=== PATIENT | male | born 1955 | race Caucasian/White ===

== ENCOUNTER 2016-08-07 18:06 | Emergency (ER) | payer OTHER ==
[2016-08-07 18:30] VITALS: BMI 39.1
[2016-08-07 18:42] LABS: AUTOMATED BASOPHIL 0.4 % (0-2); AUTOMATED EOSINOPHIL 1.2 % (0-5); AUTOMATED LYMPH 12.4 % (17-44); MPV 6.8 fL (7.4-10.4)
[2016-08-07 18:53] LABS: BLOOD UREA NITROGEN 25 MG/DL (9-20); CALCIUM 9.8 MG/DL (8.4-10.2); CALCULATED OSMOLALITY 281 MOs/Kg (270-290); CHLORIDE 106 mEq/L (98-107); GLUCOSE 163 MG/DL (70-99); SODIUM LEVEL 142 mEq/L (137-146); TOTAL PROTEIN 8.1 G/DL (6.3-8.2)
[2016-08-07 19:02] LABS: LEUKOCYTES/URINE NEG (NEGATIVE); NITRITE/URINE NEG (NEGATIVE); RBC/URINE 0-2 (0-2); URINE OCCULT BLOOD NEG (NEG/TRACE); WBC/URINE 0-2 (0-2)
[2016-08-07] MEDS ORDERED: MORPHINE 4 MG/ML INJECTION IV ONE ×3 (19:10→21:40)
[2016-08-07] MEDS ORDERED: SODIUM CHLORIDE 0.9% 10 ML FLUSH FLUSH PRN (19:10)
[2016-08-07] MEDS ORDERED: ONDANSETRON HCL 4 MG/2 ML VIAL IV ONE (19:10)
[2016-08-07] MEDS ORDERED: NS 1,000 ML IV ONE (19:17)
--- NOTE | 2016-08-07 19:19 | DIRPT ---
CLINICAL DATA: Abdominal pain and swelling EXAM: DG ABDOMEN ACUTE W/ 1V CHEST COMPARISON: 05/23/2016 FINDINGS: Cardiac shadow is within normal limits. The lungs are clear bilaterally. No bony abnormality is seen. A gastric lap band is noted in satisfactory position stable from the prior exam. Multiple dilated loops of small bowel with air-fluid levels are noted. No free air is seen. Postsurgical changes are noted in the low abdomen consistent with prior mesh repair. Fecal material is noted within the colon. IMPRESSION: Small bowel dilatation consistent with at least partial small bowel obstruction. Decompression is recommended. Further evaluation by means of CT may be helpful. Electronically Signed By: Gianni Castro M.D. On: 08/07/2016 19:16
--- NOTE | 2016-08-07 19:19 | EDPRACDOC ---
- General Information Information Source: Patient Mode Of Arrival: Car - History of Present Illness Onset: today Pain Location: Reports: Diffuse Pain Context: Reports: Spontaneous Pain Severity: Moderate Pain Quality: Reports: Aching, Sharp Pain Radiation: Reports: No Radiation Adult Abdominal History: Reports: Abdominal Surgery, Bowel Obstruction Modifying Factors: improves with: Nothing Associated Signs & Symptoms: Reports: Nausea, Vomiting Oral Intake: Decreased Urinary Output: Normal <Zoe Strickland - Last Filed: 08/07/16 20:27> <Toshia Grace - Last Filed: 08/07/16 22:10> <Simeon Nieves - Last Filed: 08/08/16 11:01> - General Information Chief Complaint: Abdominal Pain Stated Complaint: ABDOMIAL PAIN Time Seen by Provider: 08/07/16 19:09 Allergies/Adverse Reactions: Allergies Allergy/AdvReac Type Severity Reaction Status Date / Time No Known Allergies Allergy Verified 08/07/16 18:27 - History of Present Illness HPI: Pt c/o diffuse abd pain with n/v x 1 day. Pt states feels like previous bowel obstruction. Denies fever, cp, sob, changes in bowel or bladder, rash. Pt states 3-4 episodes of vomiting since 3 pm. All previous bowel obstruction surgeries have been at [facility]. (Zoe Strickland) ED Past Medical History - History Reviewed Yes Nurses notes reviewed and agree except as marked - Patient Medical History Cardiac History: Reports: Hypertension, Heart Attack, Hypercholesterolemia Systemic History: Reports: Diabetes Surgical History: Reports: Appendectomy, Cholecystectomy - Social Medical History Smoking Status: Current status unknown ETOH: None Substance Abuse: None <Zoe Strickland - Last Filed: 08/07/16 20:27> EDM Review of Systems - Review of Systems Constitutional: No Symptoms Reported. negative: Fever, Chills, Weakness, Fatigue, Loss of Appetite Ears: No Symptoms Reported. negative: Pain, Hearing Loss, Drainage, Ear Pulling Throat: No Symptoms Reported. negative: Pain, Swelling Nose: No Symptoms Reported. negative: Congestion, Bleeding, Discharge, Injection, Swelling, Deformity, Ecchymosis, Tender, Abrasion, Laceration Mouth: No Symptoms Reported. negative: Pain, Drooling Respiratory: No Symptoms Reported. negative: Cough, Brassy Cough, Barky Cough, Shortness of Breath, Wheezing, Hemoptysis Cardiovascular: No Symptoms Reported. negative: Chest Pain, Palpitations, Syncope, Edema, Orthopnea, PND, Skin Mottling, Cyanosis Gastrointestinal: Nausea, Pain, Vomiting Genitourinary: No Symptoms Reported. negative: Dysuria, Hematuria, Frequency, Discharge, Bleeding, Testicular Pain, Neurological: No Symptoms Reported. negative: Headache, Dizziness, Seizure, Numbness, Weakness, Speech Difficulty, Gait Difficulty Musculoskeletal: No Symptoms Reported. negative: Neck, Chestwall, Ribs, Back, Shoulder, Arm, Elbow, Forearm, Wrist, Hand, Pelvis, Hip, Femur, Knee, Leg, Ankle , Foot Integumentary: No Symptoms Reported. negative: Itching, Rash, Bruising, Wound Allergic/Immunologic: No Symptoms Reported. negative: Hives, Itching Hematologic: No Symptoms Reported. negative: Lymphadenopathy, Easy Bruising, Easy Bleeding Psychiatric: No Symptoms Reported. negative: Anxiety, Depression, Hallucinations, Insomnia, Suicidal <Zoe Strickland - Last Filed: 08/07/16 20:27> - Physical Exam Constitutional: Alert Oriented to: Time, Person, Place - HEENT Head: Normal ( normocephalic) Eye Exam: Normal (PERRL, EOMI, Sclera white) Oropharynx: Normal (Pharynx:Moist without exudate,Gums-no swelling) Tympanic Membrane: Normal ENT EAC: Normal Nose: No Symptoms Reported (septum midline) Neck: Normal (FROM, trachea at midline) - Respiratory/Cardiovascular Respiratory: Normal - CTA (BBS clear to auscultation without adventitious sounds ) Cardiovascular: Normal (RRR without murmur, gallop or rub) - GI Auscultation: Normal (NABS) Palpation: Normal (Soft,No rebound or guarding, non distended) Tenderness: Diffuse, Mild - Musculoskeletal Back: Normal (Non-Tender) Extremities: Normal (Normal tone, Pulses 2+ No cyanosis or edema, FROM) - Integumentary Skin: Normal, Warm, Dry Lymphatics: Normal (no adenopathy) - Neurologic Memory Impaired: Normal Motor Function: Normal (Normal tone, Pulses 2+ No cyanosis or edema, FROM) Mood Description: Normal Perception: Normal <Zoe Strickland - Last Filed: 08/07/16 20:27> - Differential Diagnosis Bowel Obstruction, Diverticulitis, Gastroenteritis - Results 08/07/16 18:34 08/07/16 18:34 - Diagnostic Imaging Abdomen Image interpreted by: Radiologist <Zoe Strickland - Last Filed: 08/07/16 20:27> - Re-evaluation Re-evaluation 3 Re-evaluation Time: 21:34 (ABDOMINAL PAIN AND NAUSEA RETURNING, PATIENT REQUESTS TRANSFER TO [facility] FOR CONTINUITY CARE WITH [facility].) - Results 08/07/16 18:34 08/07/16 18:34 <Toshia Grace - Last Filed: 08/07/16 22:10> - Re-evaluation Re-evaluation 4 Re-evaluation Time: 09:31 Re-evaluation 5 Re-evaluation Time: 11:00 - Results 08/07/16 18:34 08/07/16 18:34 <Simeon Nieves - Last Filed: 08/08/16 11:01> - Re-evaluation Re-evaluation 3 ABDOMEN DISTENDED TYMPANITIC DIFFUSELY TENDER PALPATION BUT NO PERITONEAL SIGNS. PATIENT DEFERRED NG TUBE. STATES THEY USUALLY MANAGE IT WITHOUT IT. NG TUBE EXPLANATION PROVIDED PATIENT HAS MADE AN INFORMED DECISION. (Toshia Grace) Re-evaluation 4 PT REQUESTED TO SPEAK WITH ME. PASSING FLATUS. NO ABDOMINAL PAIN. REQUESTING WATER. I FEEL WE CAN TRY. STILL WAITING FOR TRANSPORT. OBSTRUCTION MAY BE RESOLVING. (Simeon Nieves) Re-evaluation 5 PT TOLERATED PO WATER. NO PAIN , NO NAUSEA. PT WOULD LIKE TO GO HOME SYMPTOMS RESOLVED. WILL DO LIQUIDS AND EASE INTO SOLIDS. (Simeon Nieves) - Results WBC 11.8 xk/uL (3.8-10.8) H 08/07/16 18:34 RBC 4.26 xM/uL (4.70-6.10) L 08/07/16 18:34 Hgb 14.8 g/dL (14.0-18.0) 08/07/16 18:34 Hct 44.7 % (42-52) 08/07/16 18:34 MCV 105 fL (80-94) H 08/07/16 18:34 MCH 34.8 pg (27-32) H 08/07/16 18:34 MCHC 33.2 g/dl (33-36) 08/07/16 18:34 RDW 16.3 % (11.5-14.5) H 08/07/16 18:34 Plt Count 280 xk/uL (130-400) 08/07/16 18:34 MPV 6.8 fL (7.4-10.4) L 08/07/16 18:34 Neut % (Auto) 81.0 % (45-76) H 08/07/16 18:34 Lymph % (Auto) 12.4 % (17-44) L 08/07/16 18:34 [place] % (Auto) 5.0 % (3-10) 08/07/16 18:34 Eos % (Auto) 1.2 % (0-5) 08/07/16 18:34 Baso % (Auto) 0.4 % (0-2) 08/07/16 18:34 Absolute Neuts (auto) 9.56 xk/uL (1.7-8.2) H 08/07/16 18:34 Absolute Lymphs (auto) 1.42 xk/uL (0.65-4.75) 08/07/16 18:34 Sodium 142 mEq/L (137-146) 08/07/16 18:34 Potassium 4.9 mEq/L (3.5-5.1) 08/07/16 18:34 Chloride 106 mEq/L (98-107) 08/07/16 18:34 Carbon Dioxide 22 mMOL/L (22-33) 08/07/16 18:34 Anion Gap 19 mEq/L (8-16) H 08/07/16 18:34 BUN 25 MG/DL (9-20) H 08/07/16 18:34 Creatinine 1.00 MG/DL (0.66-1.25) 08/07/16 18:34 Estimated GFR (MDRD) > 60 mL/min (>=60) 08/07/16 18:34 Glucose 163 MG/DL (70-99) H 08/07/16 18:34 Calculated Osmolality 281 MOs/Kg (270-290) 08/07/16 18:34 Calcium 9.8 MG/DL (8.4-10.2) 08/07/16 18:34 Total Bilirubin 1.1 MG/DL (0.2-1.3) 08/07/16 18:34 AST 21 IU/L (17-59) 08/07/16 18:34 ALT 28 IU/L (21-72) 08/07/16 18:34 Alkaline Phosphatase 140 IU/L (50-160) 08/07/16 18:34 Total Protein 8.1 G/DL (6.3-8.2) 08/07/16 18:34 Albumin 4.4 G/DL (3.5-5.0) 08/07/16 18:34 Urine Color Yellow 08/07/16 18:37 Urine Clarity Clear 08/07/16 18:37 Urine pH 6.0 (5.0-8.0) 08/07/16 18:37 Ur Specific [place] 1.025 (1.003-1.035) 08/07/16 18:37 Urine Protein 1+ (NEG/TRACE) H 08/07/16 18:37 Urine Glucose (UA) 2+ (NEGATIVE) 08/07/16 18:37 Urine Ketones Neg (NEGATIVE) 08/07/16 18:37 Urine Occult Blood Neg (NEG/TRACE) 08/07/16 18:37 Urine Nitrite Neg (NEGATIVE) 08/07/16 18:37 Urine Bilirubin Neg (NEGATIVE) 08/07/16 18:37 Urine Urobilinogen <2.0 MG/DL (0-1) 08/07/16 18:37 Ur Leukocyte Esterase Neg (NEGATIVE) 08/07/16 18:37 Urine RBC 0-2 (0-2) 08/07/16 18:37 Urine WBC 0-2 (0-2) 08/07/16 18:37 Urine Bacteria Few (NEG/FEW) 08/07/16 18:37 Urine Mucus Occ (NEG/OCC) 08/07/16 18:37 Lab Results 08/07/16 08/07/16 08/07/16 18:37 18:34 18:34 WBC 11.8 H RBC 4.26 L Hgb 14.8 Hct 44.7 MCV 105 H MCH 34.8 H MCHC 33.2 RDW 16.3 H Plt Count 280 MPV 6.8 L Neut % (Auto) 81.0 H Lymph % (Auto) 12.4 L [place] % (Auto) 5.0 Eos % (Auto) 1.2 Baso % (Auto) 0.4 Absolute Neuts (auto) 9.56 H Absolute Lymphs (auto) 1.42 Sodium 142 Potassium 4.9 Chloride 106 Carbon Dioxide 22 Anion Gap 19 H BUN 25 H Creatinine 1.00 Estimated GFR (MDRD) > 60 Glucose 163 H Calculated Osmolality 281 Calcium 9.8 Total Bilirubin 1.1 AST 21 ALT 28 Alkaline Phosphatase 140 Total Protein 8.1 Albumin 4.4 Urine Color Yellow Urine Clarity Clear Urine pH 6.0 Ur Specific [place] 1.025 Urine Protein 1+ H Urine Glucose (UA) 2+ Urine Ketones Neg Urine Occult Blood Neg Urine Nitrite Neg Urine Bilirubin Neg Urine Urobilinogen <2.0 Ur Leukocyte Esterase Neg Urine RBC 0-2 Urine WBC 0-2 Urine Bacteria Few Urine Mucus Occ (Zoe Strickland) (Toshia Grace) (Simeon Nieves) - Diagnostic Imaging Abdomen 08/07/16 19:20 IMPRESSION: Small bowel dilatation consistent with at least partial small bowel obstruction. Decompression is recommended. Further evaluation by means of CT may be helpful. 08/07/16 20:27 Ct: IMPRESSION: 1. Findings are consistent with a partial small bowel obstruction, with the appearance similar to the prior CT. Small bowel is dilated proximal to the right lower quadrant small bowel anastomosis and normal in caliber to decompressed distal to the anastomosis. There is no bowel wall thickening or inflammatory changes. 2. No other acute findings. (Zoe Strickland) - Departure Education/Counseling Given To: Patient Education/Counseling Given Regarding: Diagnosis, Treatment <Zoe Strickland - Last Filed: 08/07/16 20:27> - Departure Disposition: Trans. to Other Hospital ([facility]) Decision to Transfer Time: 22:22 - Physician Consulted Surgery Time Called: 21:30 ([facility]) Provider Called: SURINDER Time Electrical Manager Returned Call: 21:33 (WILL SEE IN CONSULTATION, CALL HOSPITALIST FOR DIRECT ADMIT) Hospitalist Time Called: 21:33 Provider Called: ZAYDA Time Electrical Manager Returned Call: 22:22 <Toshia Grace - Last Filed: 08/07/16 22:10> Decision Time to Discharge: 11:01 - Departure Yes I personally saw and evaluated the patient. Disposition: Home Education/Counseling Given To: Patient Education/Counseling Given Regarding: Diagnosis <Simeon Nieves - Last Filed: 08/08/16 11:01> - Departure Condition: Stable Final Diagnosis: Small bowel obstruction, partial Instructions: Bowel Obstruction (ED) Referrals: None,No Provider [Primary Care Provider] - One Week Additional Instructions: RETURN FOR PAIN, N/V.
[2016-08-07] MEDS ORDERED: Pharmacy Review for Metformin - IV Contrast Given SCH (20:00)
--- NOTE | 2016-08-07 20:16 | DIRPT ---
CLINICAL DATA: Abdominal pain and distention. Nausea and vomiting for 1 day. EXAM: CT ABDOMEN AND PELVIS WITH CONTRAST TECHNIQUE: Multidetector CT imaging of the abdomen and pelvis was performed using the standard protocol following bolus administration of intravenous contrast. CONTRAST: 100 mL of Isovue 370 intravenous contrast COMPARISON: 05/22/2016 FINDINGS: Lung bases: Clear. Heart normal in size. Liver, spleen, pancreas, adrenal glands: Unremarkable. Gallbladder surgically absent. No bile duct dilation. Kidneys, ureters, bladder: Normal. Lymph nodes: No adenopathy. Ascites: None. Gastrointestinal: There is dilation of the proximal to mid small bowel, maximum diameter 4.3 cm. In the right lower quadrant, there is a small bowel anastomosis. Small bowel distal to the anastomosis is normal in caliber to decompressed. Terminal ileum is decompressed. Right colon is normal caliber. Left colon is decompressed. No bowel wall thickening or mesenteric inflammation. There is a lap band at the gastroesophageal junction stable from the prior CT. Abdominal wall: Hernia mesh lies along the anterior abdominal wall. There is some scarring along the right mid abdomen. These findings are stable. No convincing hernia. Musculoskeletal: Degenerative changes of the visualized spine. No osteoblastic or osteolytic lesions. IMPRESSION: 1. Findings are consistent with a partial small bowel obstruction, with the appearance similar to the prior CT. Small bowel is dilated proximal to the right lower quadrant small bowel anastomosis and normal in caliber to decompressed distal to the anastomosis. There is no bowel wall thickening or inflammatory changes. 2. No other acute findings. Electronically Signed By: Nacho Waite M.D. On: 08/07/2016 20:14
[2016-08-07] MEDS ORDERED: LORAZEPAM 2 MG/ML VIAL IV ONE (22:22)
[2016-08-07] MEDS ORDERED: PROMETHAZINE 25 MG/ML VIAL IV ONE (22:22)
[2016-08-08] MEDS ORDERED: ONDANSETRON HCL 4 MG/2 ML VIAL IV ONE (00:59)
[2016-08-08] MEDS ORDERED: MORPHINE 2 MG/ML INJECTION IV PRN (03:13)
[2016-08-08] MEDS ORDERED: PROMETHAZINE 25 MG/ML VIAL IV PRN (03:14)
[2016-08-08] MEDS ORDERED: HYDROmorphone 1 MG INJECTION IV PRN (04:41)
[2016-08-08] MEDS ORDERED: ONDANSETRON HCL 4 MG/2 ML VIAL IV PRN (04:41)
[2016-08-08 06:14] VITALS: TEMP 98.3
[2016-08-08 11:13] VITALS: BP 160/69; PULSE 66
== END 2016-08-08 11:12 | disposition home or self-care (01) ==
LOC: ED 18:06
DX: K56.60 Unspecified intestinal obstruction (principal)
CPT/HCPCS: 36415; 74022; 74177; 80053; 81001; 85025; 96361; 96374; 96375; 96376; 99285; A9698; J2060; J2270; J2405; J2550